=== PATIENT | female | born 1990 | race Asian ===

== ENCOUNTER 2017-09-20 04:45 | Inpatient (IN) | payer SELFPAY ==
[~2017-09-20] VITALS: Ht 160 cm; Wt 58.1 kg
[2017-09-20] MEDS ORDERED: PREN1SGL25 PO (06:12)
[2017-09-20] MEDS ORDERED: OXYTOCIN 20 UNITS in LACTATED RINGERS 1,000 ML IV SCH (06:13)
[2017-09-20] MEDS ORDERED: FERR-252 PO (06:13)
[2017-09-20] MEDS ORDERED: LACTATED RINGERS 1,000 ML IV SCH (06:13)
[2017-09-20] MEDS ORDERED: NALBUPHINE 10 MG/ML AMP IVP PRN (06:15)
[2017-09-20] MEDS ORDERED: CARBOPROST 250 MCG/ML AMP IM PRN (06:15)
[2017-09-20] MEDS ORDERED: METHYLERGONOVINE 0.2 MG/ML AMP IM PRN ×2 (06:15→18:25)
[2017-09-20] MEDS ORDERED: PROMETHAZINE 25 MG/ML VIAL IVP PRN (06:15)
[2017-09-20 06:22] VITALS: BP 110/71
[2017-09-20] MEDS ORDERED: ROPIVACAINE 0.2%/NS PREMIX 250 ML EPI ONE (07:06)
[2017-09-20 07:19] LABS: BASOPHILS # (AUTO) 0.1 K/uL (0.00-0.22); BASOPHILS % (AUTO) 0.9 % (0.0-2.0); EOSINOPHILS # (AUTO) 0.1 K/uL (0-0.4); EOSINOPHILS % (AUTO) 1.1 % (0.0-4.0); HEMATOCRIT 36.7 % (36-48); HEMOGLOBIN 12.4 g/dL (12.0-16.0); LYMPHOCYTES # (AUTO) 1.4 K/uL (2.5-16.5); LYMPHOCYTES % (AUTO) 13.5 % (20.5-51.1); MEAN CORPUSCULAR HEMOGLOBIN 32 pg (27-31); MEAN CORPUSCULAR HGB CONC 34 g/dL (33-37); MEAN CORPUSCULAR VOLUME 94 fL (80-94); MONOCYTES # (AUTO) 0.7 K/uL (0.8-1.0); MONOCYTES % (AUTO) 6.8 % (1.7-9.3); NEUTROPHILS % (AUTO) 77.7 % (42.2-75.2); PLATELET COUNT (AUTO) 121 K/uL (140-450); RED BLOOD CELL COUNT(AUTO) 3.92 MIL/uL (4.20-5.40); RED CELL DISTRIBUTION WIDTH 14.3 % (11.6-13.7); WHITE BLOOD COUNT (AUTO) 10.3 K/uL (4.8-10.8)
[2017-09-20 07:49] LABS: ALBUMIN 2.7 g/dL (3.4-5.0); CARBON DIOXIDE 25.7 mmol/L (21-32); CREATININE 0.6 mg/dL (0.6-1.3); POTASSIUM 3.7 mmol/L (3.5-5.1); TOTAL BILIRUBIN 0.3 mg/dL (0.0-1.0)
[2017-09-20 08:53] LABS: BILIRUBIN,URINE NEGATIVE (NEGATIVE); BLOOD, URINE 2+ (NEGATIVE); COLOR,URINE YELLOW (YELLOW); LEUKOCYTE ESTERASE ,URINE NEGATIVE (NEGATIVE); NITRITE, URINE NEGATIVE (NEGATIVE); UGLUCOSE NEGATIVE (NEGATIVE)
[2017-09-20 09:27] LABS: APPEARANCE,URINE HAZY (CLEAR)
[2017-09-20 09:33] LABS: RBC,URINE 3-10 (FEW) /HPF (0-5); WBC,URINE 0-5 (RARE) /HPF (0-5)
[2017-09-20 13:33] LABS: RAPID PLASMA REAGIN NON-REACTIVE (Non Reactiv)
[2017-09-20] MEDS ORDERED: OXYTOCIN 10 UNITS/ML VIAL IM ONE (14:00)
[2017-09-20] MEDS ORDERED: OXYTOCIN 10 UNITS/ML VIAL ONE (14:37)
[2017-09-20] MEDS ORDERED: OXYTOCIN 10 UNITS/ML VIAL IM PRN (18:25)
[2017-09-20] MEDS ORDERED: TEMAZEPAM 15 MG CAP PO PRN (18:25)
[2017-09-20] MEDS ORDERED: SODIUM PHOSPHATE 118 ML ENEM RC PRN (18:25)
[2017-09-20] MEDS ORDERED: MEASLES, MUMPS, AND RUBELLA 1 VIAL SQVAC PRN (18:25)
[2017-09-20] MEDS ORDERED: oxyCODONE/APAP 5/325 MG 1 TAB TAB PO PRN (18:25)
[2017-09-20] MEDS ORDERED: HYDROcodone/APAP 5/325 MG 1 TAB TAB PO PRN (18:25)
[2017-09-20] MEDS ORDERED: BENZOCAINE/MENTHOL 20%-0.5% 60 GM CAN TP PRN (18:25)
[2017-09-21 06:11] LABS: HEMATOCRIT 33.3 % (36-48); HEMOGLOBIN 10.9 g/dL (12.0-16.0)
[2017-09-21] MEDS: IBUPROFEN 800 MG TAB PO PRN ×2 (09:12→20:38)
--- NOTE | 2017-09-21 10:02 | NUR ---
PATIENT HAS BEEN SCREENED AND CATEGORIZED LOW NUTRITION RISK. PATIENT WILL BE SEEN WITHIN 7 DAYS OF ADMISSION. 09/26/[address]
[2017-09-21] MEDS ORDERED: INFLUENZA VIRUS VACCINE QUAD 0.5 ML SYR IMVAC PRN (20:50)
[2017-09-21] MEDS ORDERED: DOCUSATE SODIUM 100 MG GELCAP PO SCH (21:00)
[2017-09-22] MEDS: IBUPROFEN 800 MG TAB PO PRN (11:53)
== END 2017-09-22 16:43 | disposition home or self-care (01) | DRG 775 ==
LOC: MLD 04:45 → MFCC 18:27
PROVIDERS: ADMIT Obstetrics & Gynecology; ATTEND Obstetrics & Gynecology
PROC: 10E0XZZ Delivery of Products of Conception, External Approach (ICD-10-PCS; principal; 2017-09-20)
PROC: 10907ZC Drainage of Amniotic Fluid, Therapeutic from Products of Conception, Via Natural or Artificial Opening (ICD-10-PCS; 2017-09-20)
PROC: 3E0S3BZ Introduction of Anesthetic Agent into Epidural Space, Percutaneous Approach (ICD-10-PCS; 2017-09-20)
PROC: 00HU33Z Insertion of Infusion Device into Spinal Canal, Percutaneous Approach (ICD-10-PCS; 2017-09-20)
DX: O80 Encounter for full-term uncomplicated delivery (principal); Z23 Encounter for immunization; Z3A.40 40 weeks gestation of pregnancy
CPT/HCPCS: 36415; 51702; 59409; 80053; 81001; 85018; 85025; 86592; 86886; 86900; 86901; 90658; 90715; J2590; J2795; J7120